=== PATIENT | male | born 1975 | race Caucasian/White ===

== ENCOUNTER 2023-04-10 05:30 | Day surgery (SDC) | payer OTHER ==
[~2023-04-10] VITALS: Ht 175.3 cm; Wt 89.8 kg
[2023-04-10] MEDS ORDERED: LIDOCAINE/EPI 1% 1:100000 20 ML VIAL INJ ONE (08:40)
[2023-04-10] MEDS ORDERED: BUPIVACAINE-MPF 0.25% 30 ML VIAL INJ ONE (08:41)
[2023-04-10] MEDS ORDERED: fentaNYL citrate 0.05 MG/ML VIAL ONE (09:08)
[2023-04-10] MEDS ORDERED: MIDAZOLAM 5 MG/5 ML VIAL ONE (09:09)
[2023-04-10] MEDS ORDERED: PROPOFOL 200 MG/20 ML VIAL IV ONE (09:14)
[2023-04-10] MEDS ORDERED: ONDANSETRON 4 MG/2 ML VIAL IVP PRN (09:55)
[2023-04-10] MEDS ORDERED: HYDROmorphone 1 MG/ML AMP IVP PRN (09:55)
== END 2023-04-10 12:20 | disposition home or self-care (01) ==
LOC: MDS 05:30 → MMU 05:32 → MDS 12:20
PROVIDERS: ATTEND Surgery
DX: A63.0 Anogenital (venereal) warts (principal); K61.0 Anal abscess; Z21 Asymptomatic human immunodeficiency virus [HIV] infection status
CPT/HCPCS: 46922; 71045; 88305; 93005; J2001; J2250; J2704; J3010; J3490